=== PATIENT | female | born 1980 | race Caucasian/White ===

== ENCOUNTER 2020-05-29 07:17 | Day surgery (SDC) | payer BC ==
[2020-05-26 13:33] VITALS: BMI 26.9
[2020-05-29] MEDS ORDERED: Midazolam HCl 2 mg/2 ml Vial ONE (07:30)
[2020-05-29] MEDS ORDERED: Lidocaine 1% PF 5 ML VIAL ONE (07:30)
[2020-05-29] MEDS ORDERED: Fentanyl 100 MCG/2 ML VIAL ONE (07:30)
[2020-05-29] MEDS ORDERED: Sodium Bicarbonate 2.5 MEQ/5 ML VIAL ONE (07:30)
[2020-05-29 08:17] LABS: #Basophils 0.1 thou/uL (0.0-0.2); #Eosinphils 0.2 thou/uL (0.0-0.7); #Lymphocytes 2.1 thou/uL (1.20-3.40); #Monocytes 0.5 thou/uL (0.11-0.59); #Neutrophils 3.5 thou/uL (1.40-6.50); %Basophils 1.4 % (0.0-1.0); %Eosinophils 3.5 % (0.0-10.0); %Lymphocytes 32.7 % (21.0-51.0); %Monocytes 7.5 % (0.0-10.0); Hemoglobin 14.7 g/dL (12.0-16.0); Mean Corpuscular HGB CONC 32.7 g/dL (32.0-36.0); Mean Corpuscular Hemoglobin 29.7 pg (27.0-31.0); Mean Platelet Volume 7.9 fL (7.4-10.4); Platelet Count 216 thou/uL (130-400); RBC Distribution Width 12.3 % (11.5-14.5); Red Blood Cell (RBC) Count 4.96 mill/uL (4.20-5.40); White Blood Cell (WBC) Count 6.4 thou/uL (4.8-10.8)
[2020-05-29 08:33] LABS: INR-International Normal Ratio 0.9; PTT 27.8 sec (22.9-36.1); Prothrombin Time 12.2 sec (12.0-14.7)
--- NOTE | 2020-05-29 09:42 | ULT ---
Hepatic biopsy random sonographic guided HISTORY: Abnormal liver function tests. FINDINGS: After explaining the procedure and answering all questions, sonographic survey of the liver was performed. A safe approach to the left liver lobe was not possible due to its high position. The right abdomen was prepped and draped in usual sterile fashion. Sterile technique, buffered local anesthesia, sonographic guidance, and a right lateral intercostal approach were used to carefully advance the tip of a 17-gauge trocar needle into the right liver lobe. Position confirmed with sonogr aphy. A total of 2 18-gauge specimens were obtained and submitted to pathology for evaluation. Needle was r emoved. Patient tolerated the procedure well and was returned to the holding area in good condition for further monitoring. IMPRESSION : Technically successful sonographic guided random hepatic biopsy. Pathology is pending.
[2020-05-29 10:00] VITALS: BP 109/72; TEMP 98.4
== END 2020-05-29 10:30 | disposition home or self-care (01) ==
LOC: ULT 07:17
PROVIDERS: ATTEND Internal Medicine
PROC: 0FB03ZX Excision of Liver, Percutaneous Approach, Diagnostic (ICD-10-PCS; principal; 2020-05-29)
DX: K73.9 Chronic hepatitis, unspecified (principal); F17.210 Nicotine dependence, cigarettes, uncomplicated
CPT/HCPCS: 47000; 76942; 85025; 85610; 85730; 88307; 88313; J2250; J3010

== ENCOUNTER 2020-08-25 21:57 | Emergency (ER) | payer BC | END 2020-08-25 23:18 | disposition left against medical advice (07) | LOC: ERS 21:57 | DX: Z53.21 Procedure and treatment not carried out due to patient leaving prior to being seen by health care provider (principal) ==

== ENCOUNTER 2023-09-10 13:24 | Outpatient (CLI) | payer BC | END 2023-09-10 13:25 | disposition home or self-care (01) | LOC: RAD 13:24 | PROVIDERS: ATTEND Physician Assistant Medical | DX: R10.9 Unspecified abdominal pain (principal) | CPT/HCPCS: 74019 ==